=== PATIENT | female | born 1995 | race Caucasian/White ===

== ENCOUNTER 2017-09-01 20:19 | Emergency (ER) | payer BC ==
[~2017-09-01] VITALS: Ht 165.1 cm; Wt 99.8 kg
[2017-09-01 22:07] VITALS: BP 137/80
== END 2017-09-01 22:07 | disposition home or self-care (01) ==
LOC: M.ERS 20:19
DX: S90.121A Contusion of right lesser toe(s) without damage to nail, initial encounter (principal); Z88.8 Allergy status to other drugs, medicaments and biological substances; W22.8XXA Striking against or struck by other objects, initial encounter; Y93.89 Activity, other specified; Y92.89 Other specified places as the place of occurrence of the external cause; Y99.8 Other external cause status